=== PATIENT | female | born 1955 | race Caucasian/White ===

== ENCOUNTER 2019-10-19 12:49 | Emergency (ER) | payer OTHER, SELFPAY ==
[2019-10-19 13:03] VITALS: BP 166/87; PULSE 77; RESP 16; TEMP 37.1; O2SAT 98
--- NOTE | 2019-10-19 13:17 | ED.GENADULT ---
HPI - General Adult General Chief complaint: Skin/Abscess/Foreign Body Stated complaint: burn on left thigh Time Seen by Provider: 10/19/19 13:17 Source: patient Mode of arrival: ambulatory Limitations: no limitations History of Present Illness HPI narrative: 63-year-old female patient presents to the the medical center with complaints of a burn to the left thigh x1 week. Patient states that she sat on a hot curling iron about a week ago and burned her left back thigh. Patient states she has been trying to take care of at home and has been putting Neosporin on it as well as taking Tylenol, ibuprofen, putting some gauze over it and letting it dry out at night. Patient states that she continues to have pain and does not feel that the burn is getting any better. Related Data Home Medications Medication Instructions Recorded Confirmed meloxicam 15 mg PO DAILY 10/19/19 10/19/19 oxybutynin chloride 10 mg PO DAILY 10/19/19 10/19/19 Allergies Allergy/AdvReac Type Severity Reaction Status Date / Time No Known Allergies Allergy Verified 10/28/18 16:45 Review of Systems Review of Systems: Narrative: CONSTITUTIONAL: Denies fever, chills, or sweats. EYES: Denies visual changes, redness, or discharge. ENT: Denies rhinorrhea, congestion, sore throat, or otalgia. CARDIOVASCULAR: Denies chest pain, palpitations, or edema. RESPIRATORY: Denies cough or dyspnea. GASTROINTESTINAL: Denies abdominal pain, nausea, vomiting, or diarrhea. GENITOURINARY: Denies dysuria or hematuria. SKIN: Denies rash or itching. Positive burn to left posterior thigh MUSCULOSKELETAL: Denies back pain, joint pain, or myalgia. NEUROLOGIC: Denies headache, numbness, or weakness. PSYCHIATRIC: Denies anxiety or depression. PMFSH Comments At the time of my signature I agree with nursing past medical history, surgical, social, and family history. There is no relevant family history pertinent to the presenting complaint. Exam Narrative: Exam Narrative: GENERAL: Well-appearing, well-nourished, and in no acute distress. HEAD: Normocephalic, atraumatic. EYES: PERRLA and EOMI. ENT: Nares clear, no rhinorrhea or epistaxis. Mucous membranes moist. NECK: Supple. No lymphadenopathy CHEST: Clear to auscultation. No respiratory distress. HEART: Regular rate and rhythm. No murmur heard. Normal peripheral pulses. ABDOMEN: Soft, nontender, nondistended, normal active bowel sounds. EXTREMITIES: Normal range of motion. No edema. SKIN: Warm, dry, no rash. Patient has about 10 cm x 2 cm linear burn to the posterior/lateral left thigh. There is some yellowing to the center with surrounding erythema. Slight tenderness noted on palpation. NEURO: No focal deficits. Alert and oriented x3. Course Vital Signs Vital signs: Vital Signs Temperature 37.1 C 10/19/19 13:03 Pulse Rate 77 10/19/19 13:03 Respiratory Rate 16 10/19/19 13:03 Blood Pressure 166/87 H 10/19/19 13:03 Pulse Oximetry 98 10/19/19 13:03 Temperature 37.1 C 10/19/19 13:03 Pulse Rate 77 10/19/19 13:03 Respiratory Rate 16 10/19/19 13:03 Blood Pressure 166/87 H 10/19/19 13:03 Pulse Oximetry 98 10/19/19 13:03 Vital signs reviewed. The patient has been informed that they may have pre-hypertension or Hypertension based on a BP reading in the department. I recommend that the patient call the primary care provider listed on their discharge instructions or a physician of their choice this week to arrange follow up for further evaluation of possible pre-hypertension or Hypertension Medical Decision Making Differential Diagnosis Differential Diagnosis: Differential diagnosis: Abscess, cellulitis, hidradenitis, laceration, puncture wound. First-degree burn, second-degree burn, third-degree burn. Discussed with patient it does appear that she has a second-degree burn to the left eye. Discussed with her that we will go ahead and do a dressing change and apply the silver Silvadene to the left.we will di
[2019-10-19] MEDS: SILVER SULFADIAZINE 1% CR 50 GM JAR (*BKC) 1 APPLIC TOPICAL (13:35)
== END 2019-10-19 13:29 | disposition home or self-care (01) ==
PROVIDERS: Emergency Provider Nurse Practitioner Family
DX: T24.212A Burn of second degree of left thigh, initial encounter (principal); X19.XXXA Contact with other heat and hot substances, initial encounter; Y93.H3 Activity, building and construction; J45.909 Unspecified asthma, uncomplicated; M17.11 Unilateral primary osteoarthritis, right knee
CPT/HCPCS: 16020; 99213; A9270; G0463

== ENCOUNTER 2021-02-17 09:07 | Emergency (ER) | payer OTHER, SELFPAY ==
--- NOTE | ~2021-02-17 | XR_ITS ---
EXAMINATION: XR chest 2V DATE: 02/17/2021 09:36 INDICATION: Cough TECHNIQUE: frontal and lateral views of the chest were obtained. COMPARISON: Chest radiograph dated 05/28/2017 FINDINGS: The lungs remain clear with no focal airspace opacities, pulmonary edema, pleural effusion or pneumot horax. The cardiomediastinal silhouette is normal. Mild thoracic spondylosis. Multiple surgical clips in the upper abdomen IMPRESSION: 1. No acute cardiopulmonary disease. Reviewed, dictated and finalized at location A.
[2021-02-17 09:28] VITALS: BP 159/105; PULSE 75; RESP 18; TEMP 36.7; O2SAT 98
--- NOTE | 2021-02-17 09:34 | ED.URI ---
HPI - URI/Sore Throat General Chief Complaint: Upper Respiratory Infection Stated Complaint: Cough Time Seen by Provider: 02/17/21 09:20 Source: patient Mode of arrival: ambulatory Limitations: no limitations History of Present Illness HPI Narrative: Ilana Gay is a 65 yo female with a PMH of bladder hyperactivity [facility] concerns of possible pneumonia because of pain in her left back and low-grade fever and cough x3 days. She has a history of a Whipple procedure back in 2006 because of another obstructed duct. Related Data Home Medications Medication Instructions Recorded Confirmed meloxicam 15 mg PO DAILY 10/19/19 10/19/19 oxybutynin chloride 10 mg PO DAILY 10/19/19 10/19/19 Allergies Allergy/AdvReac Type Severity Reaction Status Date / Time No Known Allergies Allergy Verified 10/28/18 16:45 Review of Systems Review of Systems: CONSTITUTIONAL: Low-grade fever, chills, sweats. EYES: Denies visual changes, redness, discharge. ENT: Denies rhinorrhea, congestion, sore throat, otalgia. CARDIOVASCULAR: Denies chest pain, palpitations, edema. RESPIRATORY: Denies dyspnea, wheezing, has cough with low back pain GASTROINTESTINAL: Denies abdominal pain, nausea, vomiting, diarrhea. GENITOURINARY: Denies dysuria, hematuria, abnormal discharge SKIN: Denies rash or itching. NEUROLOGIC: Denies numbness, or focal weakness. PSYCHIATRIC: Denies anxiety or depression. PMFSH Past Medical History Medical History (Updated 02/17/21 @ 09:53 by Shannan Hancock CNP) Hyperactivity of bladder Surgical History Surgical History H/O Whipple procedure Family History Family History (Updated 02/17/21 @ 09:48 by Shannan Hancock CNP) Other Pancreatic cancer Social History Social History (Updated 02/17/21 @ 09:49 by Shannan Hancock CNP) Smoking status: Never smoker Alcohol intake: current Comments At time of signature, I agree with nursing past medical, surgical, social and family history. There is no relevant family history pertinent to the presenting complaint. Exam Narrative: GENERAL: This is a well-nourished, well-developed patient, in mild distress. HEAD: normocephalic, atraumatic. EYES: Sclera clear/white. Vision is grossly intact. EARS: External ears normal. Hearing grossly intact. NOSE: External nose normal without nasal discharge, nares without redness, no rhinorrhea. THROAT: Mucous membranes moist, NECK: Neck supple, non-tender CARDIOVASCULAR: Regular rate and rhythm without murmurs, gallops, or rubs. RESPIRATORY: Clear to auscultation. Breath sounds equal bilaterally. No wheezes, rales, or rhonchi. Mild left thoracic tenderness GASTROINTESTINAL: Abdomen soft, SKIN: warm, intact with no suspicious lesions or rash, good texture and turgor. NEURO: awake, alert, and oriented to person, place and time. There were no obvious focal neurologic abnormalities. Steady gait EXTREMITIES: Normal range of motion. BACK: Nontender without deformity Course Course Emergency Course: Cough concerned about pneumonia X-ray results are negative for cardiopulmonary disease there is no airspace opacity or pulmonary edema or pleural effusion Started on Tessalon, has had a negative Covid test at another facility, given provider selection sheet Vital Signs Vital signs: Vital Signs Temperature 98.1 F 02/17/21 09:28 Pulse Rate 75 02/17/21 09:28 Respiratory Rate 18 02/17/21 09:28 Blood Pressure 159/105 H 02/17/21 09:28 Pulse Oximetry 98 02/17/21 09:28 Temperature 98.1 F 02/17/21 09:28 Pulse Rate 75 02/17/21 09:28 Respiratory Rate 18 02/17/21 09:28 Blood Pressure 159/105 H 02/17/21 09:28 Pulse Oximetry 98 02/17/21 09:28 MDM - URI/Sore Throat Differential Diagnosis Differential diagnosis: Likely upper respiratory infection, bronchitis, pharyngitis and other Critical Care Time Critical Care Time Criti
== END 2021-02-17 09:58 | disposition home or self-care (01) ==
PROVIDERS: Emergency Provider Nurse Practitioner
DX: R05.9 Cough, unspecified (principal)
CPT/HCPCS: 71046; 99213; G0463

== ENCOUNTER 2021-11-03 07:32 | Outpatient (CLI) | payer OTHER, SELFPAY ==
[2021-11-03 07:59] LABS: Hematocrit 43.1 % (37.0-47.0); Hemoglobin 13.4 g/dL (12.0-15.0); Mean Corpuscular HGB Conc 31.1 g/dl (32-36); Mean Corpuscular Hemoglobin 28.5 pg (26-34); Mean Corpuscular Volume 91.5 fl (80-100); Mean Platelet Volume 9.8 fl (7.4-10.4); Platelet Count Result 282 k/mm3 (150-375); Red Blood Count 4.71 M/mm3 (4.2-5.4); Red Cell Distribution Width 13.1 % (11.5-14.5); White Blood Count 11.3 K/mm3 (4.5-10.0)
[2021-11-03 08:07] LABS: Appearance Urine Clear (Clear); Bilirubin Urine Negative (Negative); Color Urine Yellow (Yellow); Glucose Urine UA Negative (Negative); Ketones Urine Negative (Negative); Leukocyte Esterase Ur Trace LEU/UL (Negative); Nitrate Urine Positive (Negative); Protein Urine Negative (Negative); Urobilinogen Urine 0.2 mg/dL (<2.0)
[2021-11-03 08:10] LABS: Alanine Aminotransferase 20 U/L (6-35); Albumin Level 4.3 g/dL (3.5-5.1); Alkaline Phosphatase 117 U/L (38-126); Anion Gap 6 mmol/L (8-16); Aspartate Amino Transferase 34 U/L (14-36); Bilirubin,Total 0.5 mg/dL (0.2-1.3); Blood Urea Nitrogen 20 mg/dL (7-17); Calcium 9.5 mg/dL (8.4-10.2); Carbon Dioxide 30 mmol/L (22-30); Chloride 105 mmol/L (98-107); Cholesterol 235 mg/dL (0-200); Estimated Glomerular Filt Rate > 60; Glucose 119 mg/dL (65-110); HDL Direct 34 mg/dL; Potassium 4.4 mmol/L (3.4-5.0); Sodium 141 mmol/L (137-145); Triglycerides 138 mg/dL (<150)
[2021-11-03 08:18] LABS: Add Urine Microscopic? YES; Blood Urine Trace-Intact (Negative)
[2021-11-03 08:21] LABS: LDL Cholesterol Direct 162 mg/dL
[2021-11-03 08:23] LABS: Bacteria Urine Trace /hpf; Mucus Urine Rare /lpf; Squamous Epithelial Cell Urine Rare /hpf (Few)
[2021-11-03 08:34] LABS: Hemoglobin A1C 5.8 % (<5.7)
[2021-11-03 09:16] LABS: Folic Acid 14.7 ng/mL (2.76->20)
== END 2021-11-03 07:33 | disposition home or self-care (01) ==
LOC: ANHLAB 07:35
PROVIDERS: Visit Provider Family Medicine Sports Medicine
DX: Z00.00 Encounter for general adult medical examination without abnormal findings (principal); I10 Essential (primary) hypertension
CPT/HCPCS: 36415; 80053; 80061; 81001; 82607; 82746; 83036; 84443; 85027

== ENCOUNTER 2023-01-30 15:40 | Outpatient (CLI) | payer OTHER, SELFPAY ==
--- NOTE | ~2023-01-30 | MR_ITS ---
EXAMINATION: MR knee LT wo con DATE: 01/30/2023 17:31 INDICATION: Medial meniscal tear presenting with left knee pain TECHNIQUE: Magnetic resonance imaging (MRI) of the left knee was performed without intravenous contra st. Sequences included coronal PD-weighted FSE, coronal PD-weighted FS FSE, sagittal T2-weighted FSE , sagittal PD-weighted FS FSE and axial PD weighted fat saturated FSE. COMPARISON: None. FINDINGS: Medial compartment: Complex tear of the medial meniscus extending from the anterior to the posterior horn with macerated appearance extrusion of the meniscal body. Stable and near full-thickness chondral ulceration involvi ng a large portion of the anterior to central weightbearing medial femoral condyle and central and me dial aspect of the medial tibial plateau both with subarticular eburnation and minimal subarticular e maddison-like signal change. At the medial tibial plateau there is also be beginning of remodeling of the articular cortex. Lateral compartment: Complex tear of the anterior to posterior horn of the lateral meniscus with a longitudinal horizontal tear plane extending to the superior articular surface at the anterior horn, crossing the free edge at the meniscal body and extending to the inferior articular surface at the posterior horn. There is also a radial tear plane near the posterior root and additional parrot beak configuration tear plane more laterally at the posterior horn. Small region of peripheral/near full-thickness chondral ulcerat ion along the medial margin of the anterior weightbearing lateral femoral condyle and along the media l side of the lateral tibial plateau along the shoulder the intercondylar eminence. There is more ext ensive partial thickness chondral ulceration and deep fissuring at both the lateral tibial plateau an d anterior to central weightbearing lateral femoral condyle. There is minimal subarticular edema-like signal change at the central aspect of the lateral tibial plateau. Patellofemoral compartment: Deep chondral fissuring without degenerative subchondral changes at the patellar apical ridge, trochl ear groove and cephalad aspect of the medial trochlea. Ligaments and tendons: The anterior cruciate ligament demonstrates a normal angle relative to Blumensaat line but appears th ickened with increased intrasubstance signal surrounding intact appearing linear fibers. There is mil d thickening and increased signal of the distal vertical portion of the posterior cruciate ligament c onsistent with at least partial tear. Mild thickening of the proximal medial collateral ligament with out surrounding edema consistent with mild scarring related to chronic sprain. The fibular collateral ligament complex is normal. The extensor mechanism is normal. The visualized medial and lateral hams tring tendons as well as the iliotibial band are normal. Fluid: Moderate-sized knee joint effusion with mild synovitis along the margin of the suprapatellar pouch an d Hoffa's fat pad. Couple tiny loose bodies in the recess along the anterior margin of the lateral ti bial plateau. Small Bartholomew's cyst. Osseous/other: Bone alignment is normal. No fracture or pathologic marrow replacing process. There are moderate-size d marginal osteophytes in all 3 compartments of the knee. IMPRESSION: 1. Complex medial and lateral meniscal tears. 2. 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 3. Mucoid degeneration without definitive tear of the anterior cruciate ligament. 4. At least partial tear of the posterior cruciate ligament. Correlate with physical exam to assess f or degree of residual functional integrity. 5. Mild scarring likely related to chronic sprain at the proximal medial collateral ligament. 6. Moderate sized knee joint effusion an
--- NOTE | ~2023-01-30 | MR_ITS ---
EXAMINATION: MR lumbar spine wo con DATE: 01/30/2023 17:31 INDICATION: Protrusion of lumbar intervertebral disc. TECHNIQUE: Magnetic resonance imaging (MRI) of the lumbar spine was performed without intravenous con trast. COMPARISON: None FINDINGS: Bone alignment is normal. Vertebral body heights are normal. There is mildly decreased disc height at L1-L2, severely decreased disc height at L2-L3, and mildly decreased disc height at L3-L4 and L4-L5. The distal spinal cord signal intensity is normal. The conus medullaris is at L1-L2. The f ollowing disc levels are specifically discussed: L1-L2: The disc is bulging. There is mild bilateral facet joint osteoarthritis. There is no neural fo raminal stenosis. There is mild central canal stenosis. L2-L3: The disc is bulging and has an annular fissure. There is severe bilateral facet joint osteoart hritis. There is mild bilateral neural foraminal stenosis. There is mild central canal stenosis. L3-L4: The disc is bulging. There is severe bilateral facet joint osteoarthritis. There is mild bilat eral neural foraminal stenosis. There is no central canal stenosis. L4-L5: The disc is bulging and has an annular fissure. There is severe bilateral facet joint osteoart hritis. There is mild bilateral neural foraminal stenosis. There is mild central canal stenosis. L5-S1: The disc does not extend beyond the endplate margin. There is severe bilateral facet joint ost eoarthritis. There is mild right neural foraminal stenosis. There is no central canal stenosis. IMPRESSION: 1. Severe lumbar spondylosis. Reviewed, dictated and finalized at location E.
== END 2023-01-30 15:41 | disposition home or self-care (01) ==
DX: M51.26 Other intervertebral disc displacement, lumbar region (principal); M17.12 Unilateral primary osteoarthritis, left knee; S83.272A Complex tear of lateral meniscus, current injury, left knee, initial encounter; S83.232A Complex tear of medial meniscus, current injury, left knee, initial encounter; X58.XXXA Exposure to other specified factors, initial encounter; M25.462 Effusion, left knee
CPT/HCPCS: 72148; 73721

== ENCOUNTER 2023-04-14 11:24 | Emergency (ER) | payer OTHER, SELFPAY ==
--- NOTE | ~2023-04-14 | XR_ITS ---
EXAMINATION: XR chest 2V DATE: 04/14/2023 12:30 INDICATION: Cough. TECHNIQUE: Frontal and lateral views of the chest were obtained. COMPARISON: Chest 2 views 02/17/2021 FINDINGS: There is mild atelectasis at left lung base. Calcified left lung nodules and calcified left hilar and mediastinal lymph nodes are consistent with old granulomatous disease. No pleural effusion or pneumothorax. The heart size is normal. There are surgical clips in the abdomen. IMPRESSION: 1. Mild atelectasis at left lung base. Reviewed, dictated and finalized at location A. ENTRY SPECIALIST
[2023-04-14 12:04] VITALS: BP 148/104; PULSE 86; RESP 18; TEMP 36.6; O2SAT 97
--- NOTE | 2023-04-14 12:19 | ED.URI ---
HPI - URI/Sore Throat General Chief Complaint: Upper Respiratory Infection Stated Complaint: cough, hard time breathing, ear issue back pain Time Seen by Provider: 04/14/23 12:10 Source: patient Mode of arrival: ambulatory Limitations: no limitations History of Present Illness HPI Narrative: Magalie is a 67-year-old female patient presenting to the clinic today with complaints of cough, shortness of breath, pain in the left side of her back, and bilateral ear pain times 2 days. History of left-sided pneumonia in the past and is concerned about pneumonia today. Family members have been sick for the past week and she has been trying to distance from them MD elicited complaint: sore throat and nasal congestion Related Data Home Medications Medication Instructions Recorded Confirmed metoprolol succinate 50 mg 50 mg PO DAILY 04/14/23 04/14/23 tablet,extended release 24 hr solifenacin 5 mg tablet 5 mg PO DAILY 04/14/23 04/14/23 Allergies Allergy/AdvReac Type Severity Reaction Status Date / Time No Known Allergies Allergy Verified 04/14/23 12:40 Review of Systems Review of Systems: Pertinent positives per HPI. Patient denies any fever, chills, rash, headache, visual changes, dizziness,chest pain, palpitations, nausea, vomiting, diarrhea, constipation, abdominal pain, or any urinary issues. PMFSH Past Medical History Medical History Hyperactivity of bladder Surgical History Surgical History H/O Whipple procedure Family History Family History Other Pancreatic cancer Social History Social History Smoking status: Never smoker Alcohol intake: current Comments At the time of my signature, I reviewed and agree with the nursing past medical, surgical, social, and family history. There is no relevant family history pertinent to the patient complaint. Exam Narrative: General: Well-developed, well nourished, in no apparent distress Head: Normocephalic, atraumatic Eyes: Pupils equally round and reactive to light bilaterally, EOM intact, sclera and conjunctive clear, no discharge, lids normal Ears: TMs intact and congested, ear canals clear, no drainage, grossly hearing normal. Nose: Nares patent, clear nasal discharge, no inflammation, no sinus tenderness. Mouth: Oral pharynx without lesions or masses, good dentition, MMM. Neck: Supple, trachea midline, no enlargement of anterior or posterior cervical nodes, no thyroid masses or goiter palpable. Cardio: Regular rate and rhythm, s1 and s2 normal, no murmur appreciated. Resp: Expiratory wheezing with mild rhonchi, no rales or rubs Course Course Emergency Course: Portions of this record may have been created with voice recognition software. Level of Care: Express Care Visit Vital Signs Vital signs: Vital Signs Temperature 36.6 C 04/14/23 12:04 Pulse Rate 86 04/14/23 12:04 Respiratory Rate 18 04/14/23 12:04 Blood Pressure 148/104 H 04/14/23 12:04 Pulse Oximetry 97 04/14/23 12:04 Oxygen Delivery Room Air 04/14/23 12:04 Temperature 36.6 C 04/14/23 12:04 Pulse Rate 86 04/14/23 12:04 Respiratory Rate 18 04/14/23 12:04 Blood Pressure 148/104 H 04/14/23 12:04 Pulse Oximetry 97 04/14/23 12:04 Oxygen Delivery Room Air 04/14/23 12:04 Vital signs reviewed MDM - URI/Sore Throat MDM Narrative Medical decision making narrative: At the time of visit patient is resting comfortably on the exam table. Patient appears to be nontoxic. COVID, influenza, and strep test were performed. COVID and strep were negative. Influenza test was positive for influenza A. Chest x-ray was performed and shows mild atelectasis in the left lower lobe. Prescription for albuterol inhaler and Brinda
== END 2023-04-14 12:45 | disposition home or self-care (01) ==
PROVIDERS: Emergency Provider Nurse Practitioner Family
DX: J10.1 Influenza due to other identified influenza virus with other respiratory manifestations (principal); J40 Bronchitis, not specified as acute or chronic; J98.11 Atelectasis; Z20.822 Contact with and (suspected) exposure to COVID-19
CPT/HCPCS: 71046; 87081; 87426; 87804; 87880; 99213; C9803; G0463

== ENCOUNTER 2023-12-09 08:59 | Outpatient (CLI) | payer OTHER, SELFPAY ==
[2023-12-09 09:33] LABS: Basophils Percent Auto 0.2 % (0.2-1.2); Eosinophils Absolute Auto 0.3 K/mm3 (0-0.3); Eosinophils Percent Auto 2.2 % (0-4.4); Hematocrit 42.1 % (37.0-47.0); Hemoglobin 13.4 g/dL (12.0-15.0); Immature Granulocyte Absolute 0.04 K/mm3 (0.00-0.031); Immature Granulocyte Percent A 0.3 % (0-0.5); Lymphocytes Absolute Auto 2.49 K/mm3 (0.9-3.2); Lymphocytes Percent Auto 20.4 % (18.3-44.2); Mean Corpuscular HGB Conc 31.8 g/dl (32-36); Mean Corpuscular Hemoglobin 28.6 pg (26-34); Mean Platelet Volume 10.1 fl (7.4-10.4); Monocytes Absolute Auto 0.7 K/mm3 (0.1-0.6); Monocytes Percent Auto 5.6 % (2.6-8.5); Neutrophils Absolute Auto 8.7 K/mm3 (1.3-6.7); Neutrophils Percent Auto 71.3 % (45.5-73.1); Platelet Count Result 286 k/mm3 (150-375); Red Blood Count 4.68 M/mm3 (4.2-5.4); Red Cell Distribution Width 13.3 % (11.5-14.5); White Blood Count 12.2 K/mm3 (4.5-10.0)
[2023-12-09 09:47] LABS: Alanine Aminotransferase 20 U/L (6-35); Albumin Level 4.4 g/dL (3.5-5.1); Alkaline Phosphatase 119 U/L (38-126); Anion Gap 10 mmol/L (4-12); Aspartate Amino Transferase 38 U/L (14-36); Bilirubin,Total 0.4 mg/dL (0.2-1.3); Blood Urea Nitrogen 20 mg/dL (7-17); Calcium 9.1 mg/dL (8.4-10.2); Carbon Dioxide 29 mmol/L (22-30); Chloride 101 mmol/L (98-107); Cholesterol 226 mg/dL (0-200); Estimated Glomerular Filt Rate > 60; Glucose 118 mg/dL (65-110); HDL Direct 40 mg/dL; Potassium 4.3 mmol/L (3.4-5.0); Sodium 140 mmol/L (137-145); Triglycerides 136 mg/dL (<150)
[2023-12-09 09:58] LABS: LDL Cholesterol Direct 151 mg/dL
[2023-12-09 10:56] LABS: Vitamin D 25 Hydroxy 13.6 ng/mL
[2023-12-09 11:52] LABS: Vitamin B12 > 1000.0 pg/mL (239-931)
[2023-12-09 13:28] LABS: Folic Acid 9.1 ng/mL (2.76->20)
[2023-12-09 15:28] LABS: Add Urine Microscopic? YES; Appearance Urine Turbid (Clear); Bilirubin Urine Negative (Negative); Blood Urine Negative (Negative); Color Urine Yellow (Yellow); Glucose Urine UA Negative (Negative); Ketones Urine Negative (Negative); Leukocyte Esterase Ur 1+ LEU/UL (Negative); Nitrate Urine Positive (Negative); Protein Urine Trace mg/dL (Negative); Specific Grav Ur 1.032 (1.001-1.035)
[2023-12-09 16:16] LABS: RBC Urine 0-2 /hpf (0-2)
[2023-12-09 16:17] LABS: Bacteria Urine 4+ /hpf; Squamous Epithelial Cell Urine Few /hpf (Few)
== END 2023-12-09 09:00 | disposition home or self-care (01) ==
LOC: ANHLAB 09:00
PROVIDERS: Visit Provider Nurse Practitioner
DX: Z00.00 Encounter for general adult medical examination without abnormal findings (principal); I10 Essential (primary) hypertension; Z13.21 Encounter for screening for nutritional disorder; R53.81 Other malaise; M19.90 Unspecified osteoarthritis, unspecified site; K76.0 Fatty (change of) liver, not elsewhere classified
CPT/HCPCS: 36415; 80053; 80061; 81001; 82306; 82607; 82746; 84443; 85025

== ENCOUNTER 2024-05-13 07:57 | Outpatient (CLI) | payer OTHER, SELFPAY ==
[2024-05-13 08:40] LABS: Basophils Percent Auto 0.2 % (0.2-1.2); Eosinophils Absolute Auto 0.3 K/mm3 (0-0.3); Eosinophils Percent Auto 2.8 % (0-4.4); Hematocrit 42.2 % (37.0-47.0); Hemoglobin 13.5 g/dL (12.0-15.0); Immature Granulocyte Absolute 0.04 K/mm3 (0.00-0.031); Immature Granulocyte Percent A 0.3 % (0-0.5); Lymphocytes Absolute Auto 2.38 K/mm3 (0.9-3.2); Lymphocytes Percent Auto 19.4 % (18.3-44.2); Mean Corpuscular Hemoglobin 28.5 pg (26-34); Mean Corpuscular Volume 89.2 fl (80-100); Mean Platelet Volume 9.9 fl (7.4-10.4); Monocytes Absolute Auto 0.8 K/mm3 (0.1-0.6); Monocytes Percent Auto 6.3 % (2.6-8.5); Neutrophils Absolute Auto 8.7 K/mm3 (1.3-6.7); Platelet Count Result 285 k/mm3 (150-375); Red Blood Count 4.73 M/mm3 (4.2-5.4); White Blood Count 12.3 K/mm3 (4.5-10.0)
[2024-05-13 08:48] LABS: Alanine Aminotransferase 23 U/L (6-35); Albumin Level 4.2 g/dL (3.5-5.1); Alkaline Phosphatase 148 U/L (38-126); Anion Gap 7 mmol/L (4-12); Aspartate Amino Transferase 34 U/L (14-36); Bilirubin,Total 0.8 mg/dL (0.2-1.3); Blood Urea Nitrogen 17 mg/dL (7-17); Calcium 9.7 mg/dL (8.4-10.2); Carbon Dioxide 28 mmol/L (22-30); Chloride 105 mmol/L (98-107); Estimated Glomerular Filt Rate > 60; Glucose 116 mg/dL (65-110); Potassium 4.3 mmol/L (3.4-5.0); Sodium 140 mmol/L (137-145)
[2024-05-13 10:08] LABS: Vitamin D 25 Hydroxy 40.1 ng/mL
== END 2024-05-13 07:58 | disposition home or self-care (01) ==
PROVIDERS: Visit Provider Nurse Practitioner
DX: E55.9 Vitamin D deficiency, unspecified (principal); I10 Essential (primary) hypertension; R53.81 Other malaise; M19.90 Unspecified osteoarthritis, unspecified site; R73.9 Hyperglycemia, unspecified; E78.5 Hyperlipidemia, unspecified; R74.01 Elevation of levels of liver transaminase levels
CPT/HCPCS: 36415; 80053; 82306; 83036; 85025

== ENCOUNTER 2024-05-27 10:14 | Outpatient (CLI) | payer OTHER, SELFPAY ==
[2024-05-27 14:08] LABS: Add Urine Microscopic? YES; Appearance Urine Turbid (Clear); Bacteria Urine 4+ /hpf; Bilirubin Urine Negative (Negative); Blood Urine Negative (Negative); Color Urine Yellow (Yellow); Glucose Urine UA Negative (Negative); Ketones Urine Trace mg/dL (Negative); Leukocyte Esterase Ur Negative LEU/UL (Negative); Need Manual Microscopic Reviewed; Nitrate Urine Positive (Negative); Non Pathogenic Casts 0-2; Protein Urine Trace mg/dL (Negative); RBC Urine 0-2 /hpf (0-2); Specific Grav Ur 1.029 (1.001-1.035); Squamous Epithelial Cell Urine Occasional /hpf (Few); pH Urine 6.5 (5.0-9.0)
== END 2024-05-27 10:15 | disposition home or self-care (01) ==
LOC: ANHLAB 10:17
PROVIDERS: Visit Provider Nurse Practitioner
DX: N39.0 Urinary tract infection, site not specified (principal)
CPT/HCPCS: 81001; 87077; 87086; 87186

== ENCOUNTER 2024-06-16 08:09 | Outpatient (CLI) | payer OTHER, SELFPAY ==
[2024-06-16 08:32] LABS: Basophils Percent Auto 0.3 % (0.2-1.2); Eosinophils Absolute Auto 0.3 K/mm3 (0-0.3); Eosinophils Percent Auto 3.3 % (0-4.4); Hematocrit 41.4 % (37.0-47.0); Hemoglobin 13.5 g/dL (12.0-15.0); Immature Granulocyte Absolute 0.03 K/mm3 (0.00-0.031); Immature Granulocyte Percent A 0.3 % (0-0.5); Lymphocytes Absolute Auto 2.28 K/mm3 (0.9-3.2); Lymphocytes Percent Auto 21.9 % (18.3-44.2); Mean Corpuscular HGB Conc 32.6 g/dl (32-36); Mean Corpuscular Hemoglobin 29.6 pg (26-34); Mean Corpuscular Volume 90.8 fl (80-100); Mean Platelet Volume 9.9 fl (7.4-10.4); Monocytes Absolute Auto 0.6 K/mm3 (0.1-0.6); Neutrophils Absolute Auto 7.1 K/mm3 (1.3-6.7); Neutrophils Percent Auto 68.2 % (45.5-73.1); Platelet Count Result 275 k/mm3 (150-375); Red Blood Count 4.56 M/mm3 (4.2-5.4); Red Cell Distribution Width 13.2 % (11.5-14.5); White Blood Count 10.4 K/mm3 (4.5-10.0)
[2024-06-16 08:45] LABS: Cholesterol 212 mg/dL (0-200); HDL Direct 37 mg/dL; Triglycerides 138 mg/dL (<150)
[2024-06-16 08:55] LABS: LDL Cholesterol Direct 144 mg/dL
[2024-06-16 11:20] LABS: Add Urine Microscopic? YES; Appearance Urine Clear (Clear); Bacteria Urine None Seen /hpf; Bilirubin Urine Negative (Negative); Blood Urine Negative (Negative); Color Urine Yellow (Yellow); Glucose Urine UA Negative (Negative); Ketones Urine Trace mg/dL (Negative); Leukocyte Esterase Ur Trace LEU/UL (Negative); Nitrate Urine Negative (Negative); Non Pathogenic Casts 0-2; Protein Urine Negative (Negative); RBC Urine 0-2 /hpf (0-2); Specific Grav Ur 1.027 (1.001-1.035); Squamous Epithelial Cell Urine None Seen /hpf (Few); WBC Urine 0-5 /hpf (0-3); pH Urine 6.5 (5.0-9.0)
== END 2024-06-16 08:10 | disposition home or self-care (01) ==
PROVIDERS: Visit Provider Family Medicine
DX: R35.0 Frequency of micturition (principal); D72.89 Other specified disorders of white blood cells; E78.5 Hyperlipidemia, unspecified; N39.0 Urinary tract infection, site not specified
CPT/HCPCS: 36415; 80061; 81001; 85025

== ENCOUNTER 2024-08-19 09:10 | Outpatient (CLI) | payer OTHER, SELFPAY ==
[2024-08-19 10:43] LABS: Add Urine Microscopic? YES; Appearance Urine Cloudy (Clear); Bacteria Urine None Seen /hpf; Bilirubin Urine Negative (Negative); Blood Urine Trace (Negative); Color Urine Yellow (Yellow); Glucose Urine UA Negative (Negative); Ketones Urine Trace mg/dL (Negative); Leukocyte Esterase Ur 3+ LEU/UL (Negative); Nitrate Urine Negative (Negative); Non Pathogenic Casts 0-2; Protein Urine Negative (Negative); Specific Grav Ur 1.024 (1.001-1.035); Squamous Epithelial Cell Urine None Seen /hpf (Few); Urobilinogen Urine 0.2 mg/dL (<2.0); WBC Urine >100 /hpf (0-3)
== END 2024-08-19 09:11 | disposition home or self-care (01) ==
LOC: ANHLAB 09:11
PROVIDERS: Family Medicine; Visit Provider Nurse Practitioner
DX: R35.0 Frequency of micturition (principal); N39.3 Stress incontinence (female) (male); Z87.440 Personal history of urinary (tract) infections
CPT/HCPCS: 81001; 87086; 87181

== ENCOUNTER 2024-12-08 08:18 | Outpatient (CLI) | payer OTHER, SELFPAY ==
--- OUTSIDE RECORDS SUMMARY | 2024-12-08 08:30 | XMS_ITS ---
Author Organization Unknown ENCOUNTERS Encounter Performer Location Date Diagnosis Diagnosis Status Outpatient Shey Melvin [facility] [address] [place] [address] [id number] Outpatient Shey Melvin [facility] [address] [place] [address] [id number] [facility] Outpatient Yuriy Jones [facility] [address] [place] [address] [id number] [facility] Outpatient Shey Melvin [facility] [address] [place] [address] [id number] [facility] Outpatient Shey Melvin [facility] [address] [place] [address] [id number] [facility] Outpatient Shey Melvin [facility] [address] [place] [address] [id number] [facility] Outpatient Betty Layton [facility] [address] [place] [address] [id number] [facility] Outpatient Juanjo Betancourt [facility] [address] [place] [address] [id number] MAGALY *Note: Encounters from your own facility or health system may be excluded. Allergies, Adverse Reactions, Alerts Allergen Type Severity Identification Date Medications Name Date Quantity Days Supplied GPI Number
[2024-12-08 09:02] LABS: Hematocrit 40.7 % (37.0-47.0); Hemoglobin 12.9 g/dL (12.0-15.0); Immature Granulocyte Percent A 0.4 % (0-0.5); Lymphocytes Absolute Auto 2.34 K/mm3 (0.9-3.2); Mean Corpuscular HGB Conc 31.7 g/dl (32-36); Mean Corpuscular Hemoglobin 28.4 pg (26-34); Mean Corpuscular Volume 89.6 fl (80-100); Nucleated Red Blood Cells Absolute Auto 0.000 K/mm3 (0.0-0.012); Nucleated Red Blood Cells Perc 0.0 % (0.0-0.2); Platelet Count Result 266 k/mm3 (150-375); Red Blood Count 4.54 M/mm3 (4.2-5.4); White Blood Count 11.0 K/mm3 (4.5-10.0)
[2024-12-08 09:25] LABS: Alanine Aminotransferase 19 U/L (6-35); Albumin Level 4.2 g/dL (3.5-5.1); Alkaline Phosphatase 134 U/L (38-126); Anion Gap 6 mmol/L (4-12); Aspartate Amino Transferase 37 U/L (14-36); Bilirubin,Total 0.7 mg/dL (0.2-1.3); Blood Urea Nitrogen 19 mg/dL (7-17); Calcium 9.3 mg/dL (8.4-10.2); Carbon Dioxide 31 mmol/L (22-30); Chloride 103 mmol/L (98-107); Cholesterol 189 mg/dL (0-200); Estimated Glomerular Filt Rate > 60; Glucose 110 mg/dL (65-110); HDL Direct 34 mg/dL; Potassium 4.2 mmol/L (3.4-5.0); Sodium 140 mmol/L (137-145); Total Protein 7.2 g/dL (6.3-8.2); Triglycerides 132 mg/dL (<150)
[2024-12-08 09:51] LABS: Thyroid Stimulating Hormone Reflex 1.630 uIU/mL (0.465-4.68)
[2024-12-08 10:11] LABS: Add Urine Microscopic? YES; Appearance Urine Cloudy (Clear); Glucose Urine UA Negative (Negative); Leukocyte Esterase Ur 1+ LEU/UL (Negative); Nitrate Urine Positive (Negative); Non Pathogenic Casts 0-2; Specific Grav Ur 1.023 (1.001-1.035)
[2024-12-08 11:34] LABS: Vitamin B12 331.0 pg/mL (239-931)
== END 2024-12-08 08:19 | disposition home or self-care (01) ==
PROVIDERS: Visit Provider Nurse Practitioner
DX: Z00.00 Encounter for general adult medical examination without abnormal findings (principal); R79.89 Other specified abnormal findings of blood chemistry; R53.81 Other malaise; I10 Essential (primary) hypertension; E78.5 Hyperlipidemia, unspecified; E55.9 Vitamin D deficiency, unspecified; G47.00 Insomnia, unspecified; Z13.21 Encounter for screening for nutritional disorder; Z87.19 Personal history of other diseases of the digestive system; R73.03 Prediabetes
CPT/HCPCS: 36415; 80053; 80061; 81001; 82306; 82607; 82746; 84443; 85025; 87086

== ENCOUNTER 2024-12-20 10:38 | Emergency (ER) | payer OTHER, SELFPAY ==
[2024-12-20 10:47] VITALS: BP 188/86; PULSE 85; RESP 16; TEMP 36.4; O2SAT 94
--- NOTE | 2024-12-20 10:53 | ED.URI ---
HPI - URI/Sore Throat General Chief Complaint: Upper Respiratory Infection Stated Complaint: cough Patient presents to [facility] with complaints of continued cough, chest congestion, mild runny nose fatigue 1 week ago. Patient noted saw primary care physician 4 days ago was started on an antibiotic and was given a new inhaler. Patient is continued Coricidin [id number]-[id number]-eclisay medications with temporary relief of symptoms. Denies any known sick contacts. Noted that with change of weather she does usually get a bronchitis or other type of illness. Denies fever, chills, body aches, headache, dizziness, sore throat, nausea diarrhea. Related Data Home Medications ?Medication ?Instructions ?Recorded ?Confirmed ?Last Taken ?Type metoprolol succinate 50 mg 50 mg PO DAILY 04/14/23 12/20/24 Unknown History tablet,extended release 24 hr solifenacin 5 mg tablet 5 mg PO DAILY 04/14/23 12/20/24 Unknown History Allergies Allergy/AdvReac Type Severity Reaction Status Date / Time No Known Allergies Allergy Verified 12/20/24 10:44 Review of Systems Constitutional: Constitutional: Reports as per HPI, Denies chills, Reports fatigue, Denies fever(s) and Denies weakness Eyes: Eyes: Reports no additional eye complaints ENT: Reports as per HPI, Denies vertigo, Denies dizziness, Reports nasal congestion and Denies sore throat Cardiovascular: Cardiovascular: Reports no additional cardiovascular complaints Respiratory: Respiratory: Reports as per HPI, Reports chest congestion, Reports cough, Reports dyspnea and Reports wheezing Gastrointestinal: Gastrointestinal: Reports as per HPI, Denies diarrhea, Denies nausea and Denies vomiting Genitourinary: Genitourinary: Reports no additional female genitourinary complaints Musculoskeletal: Musculoskeletal: Reports as per HPI, Denies back pain and Denies myalgias Integumentary/Breasts: Skin/Breast: Reports as per HPI, Denies erythema, Denies rash and Denies skin ulcer Neurologic: Reports as per HPI, Denies vertigo, Denies dizziness and Denies headache(s) Psychiatric: Psychiatric: Reports no additional psychiatric complaints Endocrine: Endocrine: Reports no additional endocrine complaints Hematologic/Lymphatic: Hematologic/Lymphatic: Reports no additional hematologic/lymphatic complaints Allergic/Immunologic: Allergic/Immunologic: Reports as per HPI, Denies lip swelling, Denies throat swelling, Denies tongue swelling and Reports wheezing PMFSH Past Medical History Medical History (Updated 12/20/24 @ 11:08 by MICHELLE Liu-C) Degenerative arthritis of knee, bilateral History of abdominal hernia Hypertension Hyperactivity of bladder Surgical History Surgical History History of surgery on wrist History of hysterectomy History of cholecystectomy H/O Whipple procedure Family History Family History Father Pancreatic cancer Sibling Chaffee disease Other Rheumatoid arthritis Social History Social History Smoking status: Never smoker Alcohol intake: former Substance use type: does not use Do You Feel Safe in your Home?: Yes Lack of Transportation: No Lack of Food: Never True Current Housing: I Do Not Have Housing Concerned About Future Housing: No Difficulty Paying for Meds: No Currently Unemployed: No Education: High School Diploma/GED Difficulty w/ Childcare or Family Care: No Living arrangements: with family Occupation/Education: occupation 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 Exam Const: General: healthy appearing and no acute distress Nutritional Appearance: well nourished Orientation/consciousness: patient oriented x3 Limitations: no limitations HENMT: Head: normal to inspection Ears: external ears normal and TM's normal bilaterally Face/Nose/Sinus: Normal external nose present Face and sinus: normal facial exam and sinuses nontender Mouth: Yes Normal oral and palatal mucosa present Throat: posterior oropharynx normal Neck: Neck: normal visual inspection and no lymphadenopathy Resp: Effort & Inspection: normal respiratory effort Auscultation: clear to auscultation bilaterally ( Posterior) Other: anterior breath sounds bronchial sounds noted. Minimal expiratory wheezing congested cough noted Cardio: Rate: regular rate Rhythm: regular rhythm Skin: General skin exam: normal color Rashes: no rashes Wounds: no wounds Neuro: General: patient oriented x3 Speech: normal speech Gait exam (Neuro): Normal gait present Psych: Mental Status: mental status grossly normal Affect: normal affect Attitude: cooperative Course Course Level of Care: Express Care Visit Vital Signs Vital signs: Vital Signs Temperature 97.6 F 12/20/24 10:47 Pulse Rate 85 12/20/24 10:47 Respiratory Rate 16 12/20/24 10:47 Blood Pressure 188/86 H 12/20/24 10:47 Pulse Oximetry 94 12/20/24 10:47 Oxygen Delivery Room Air 12/20/24 10:47 Temperature 97.6 F 12/20/24 10:47 Pulse Rate 85 12/20/24 10:47 Respiratory Rate 16 12/20/24 10:47 Blood Pressure 188/86 H 12/20/24 10:47 Pulse Oximetry 94 12/20/24 10:47 Oxygen Delivery Room Air 12/20/24 10:47 MDM - URI/Sore Throat MDM Narrative Medical decision making narrative: patient to continue on antibiotic with [id number] medications and albuterol inhaler. Will add refill of codeine cough syrup the and steroids The patient was evaluated by myself in the [facility] care. History is obtained from patient who is an independent historian and physical exam was performed. Available medical records were reviewed at this time. Exam findings show no acute concerns or changes; patient is non-toxic appearing and is in no distress. Patient is appropriate for outpatient treatment and follow-up. I have evaluated and discussed social determinants of health with the patient that could potentially impact subsequent diagnosis and treatment plans. Differential diagnosis and treatment plan were discussed with the patient. Patient agrees with discussion and after shared medical decision making agrees with plan of care. All questions were answered to the patient's satisfaction. Differential Diagnosis Differential diagnosis: Likely upper respiratory infection, croup, sinusitis, viral infection, bronchitis and pharyngitis Medical Records Attestation: I reviewed the patient's medical records. Discharge Plan Discharge Clinical Impression: Bronchitis Patient Disposition: Home Condition: Stable Instructions: Antibiotic Form, Acute Bronchitis (ED), Bronchospasm (ED) Additional Instructions: Return to urgent care or go to the ER for new or worsening symptoms. Continue to take Tylenol or Motrin for pain. Use a humidifier or vaporizer at night. Take Medications as prescribed. Drink plenty of water. 8-10 glasses per day. Use flonase 2 times per day for 5 days then as needed Take mucinex 2 times per day and be sure to take with 8oz of water. Follow up with Primary provider if not getting better. Take the full dose of steroids as directed to decrease inflammation and open up sinus and airway Increase water intake to 8-10 glasses per day Patient Language: Chinese Prescriptions: New benzonatate 200 mg capsule 200 mg PO TID PRN (Reason: cough) Qty: 30 0RF methylprednisolone [Medrol (Francis)] 4 mg tablets,dose pack See Rx Instructions .ROUTE .COMPLEX Qty: 21 0RF Rx Instructions: for 6 days codeine-guaifenesin [Guaifenesin AC] 10-100 mg/5 mL liquid 5 ml PO Q6H PRN (Reason: cough) Qty: 120 0RF No Action albuterol sulfate 90 mcg/actuation HFA aerosol inhaler 2 puff inhalation Q4-6H PRN (Reason: shortness of breath or wheezing) 30 Days Qty: 8.5 0RF metoprolol succinate 50 mg tablet extended release 24 hr 50 mg PO DAILY solifenacin 5 mg tablet 5 mg PO DAILY Follow-up/Referrals: Karen,Yuriy Martinez MD [Primary Care Provider, Unknown] Stand Alone Forms: Work/School Release IP Time of Disposition: 11:09
== END 2024-12-20 11:13 | disposition home or self-care (01) ==
PROVIDERS: Emergency Provider Nurse Practitioner Family; PCP Family Medicine
DX: J40 Bronchitis, not specified as acute or chronic (principal); I10 Essential (primary) hypertension; M17.0 Bilateral primary osteoarthritis of knee; N32.81 Overactive bladder
CPT/HCPCS: 99213; G0463

== ENCOUNTER 2025-02-02 08:11 | Outpatient (CLI) | payer OTHER, SELFPAY ==
[2025-02-02 09:35] LABS: Hematocrit 41.8 % (37.0-47.0); Hemoglobin 13.1 g/dL (12.0-15.0); Immature Granulocyte Percent A 0.5 % (0-0.5); Lymphocytes Absolute Auto 2.52 K/mm3 (0.9-3.2); Mean Corpuscular HGB Conc 31.3 g/dl (32-36); Mean Corpuscular Hemoglobin 28.4 pg (26-34); Mean Corpuscular Volume 90.7 fl (80-100); Nucleated Red Blood Cells Absolute Auto 0.000 K/mm3 (0.0-0.012); Nucleated Red Blood Cells Perc 0.0 % (0.0-0.2); Platelet Count Result 280 k/mm3 (150-375); Red Blood Count 4.61 M/mm3 (4.2-5.4); White Blood Count 11.7 K/mm3 (4.5-10.0)
[2025-02-02 09:56] LABS: Alanine Aminotransferase 16 U/L (6-35); Albumin Level 4.1 g/dL (3.5-5.1); Alkaline Phosphatase 147 U/L (38-126); Anion Gap 6 mmol/L (4-12); Aspartate Amino Transferase 29 U/L (14-36); Bilirubin,Total 0.6 mg/dL (0.2-1.3); Blood Urea Nitrogen 26 mg/dL (7-17); Calcium 9.1 mg/dL (8.4-10.2); Carbon Dioxide 29 mmol/L (22-30); Chloride 105 mmol/L (98-107); Estimated Glomerular Filt Rate > 60; Glucose 104 mg/dL (65-110); Potassium 4.1 mmol/L (3.4-5.0); Sodium 140 mmol/L (137-145); Total Protein 7.1 g/dL (6.3-8.2)
== END 2025-02-02 08:12 | disposition home or self-care (01) ==
PROVIDERS: PCP Family Medicine; Visit Provider Nurse Practitioner
DX: I12.9 Hypertensive chronic kidney disease with stage 1 through stage 4 chronic kidney disease, or unspecified chronic kidney disease (principal); N18.9 Chronic kidney disease, unspecified; R53.81 Other malaise; R79.89 Other specified abnormal findings of blood chemistry
CPT/HCPCS: 36415; 80053; 85025